=== PATIENT | female | born 1985 | race Caucasian/White ===

== ENCOUNTER 2024-12-16 10:09 | Outpatient (AMB) | payer BC, SELFPAY ==
[2024-12-16 10:24] VITALS: BP 127/75; PULSE 87; RESP 17; TEMP 36.7; BMI 33.2
--- NOTE | 2024-12-16 10:24 | AMB.GYNCLNOT ---
Vital Signs 12/16/24 10:24 Height 1.63 m Height Method Measured Weight 87.713 kg Weight Measurement Method Standing Scale BMI 33.2 BP 127/75 Blood Pressure Source Automatic Cuff Blood Pressure Location Right Upper Arm Position Sitting Respiration 17 Pulse 87 Pulse Source Monitor Temp 98.1 F Temp Source Temporal Artery Scan Allergies/Home Meds Allergies & Medications Allergies Penicillins Allergy (Intermediate, Verified 12/31/24 08:53) RASH Intake Visit Data Collection New Patient or Established: Established Patient (seen at [facility] within 3 years) Reason for Visit:: CONTROL REMOVAL CONSULT Tool Room Attendant Required: No Do You Feel Safe at Home: Yes Authorities Contacted: N/A PCP or OBGYN visit in last 3 months: Yes Date of Last PCP or OBGYN visit: 04/29/24 Hx Now: No Are you currently on any form of Control: Yes Last menstrual period: 12/14/24 Pain Present Currently: No Pain Scale Used: Travis-Martinez/Numerical Pain scale:: 0 Smoking Status Smoking Status: Never smoker 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 1. Little interest or pleasure in doing things: not at all 2. Feeling down, depressed, or hopeless: not at all Total score: 0 PHQ-9 3. Trouble falling or staying asleep, or sleeping too much: Not at all 4. Feeling tired or having little energy: Not at all 5. Poor appetite or overeating: Not at all 6. Feeling bad about yourself - or that you are a failure or have let yourself or your family down: Not at all 7. Trouble concentrating on things, such as reading the newspaper or watching television: Not at all 8. Moving or speaking so slowly that other people could have noticed? - Or the opposite - being so fidgety or restless that you have been moving around a lot more than usual: not at all 9. Thoughts that you would be better off or of hurting yourself in some way: Not at all Total score: 0 If you checked off any problems, how difficult have these problems made it for you to do your work, take care of things at home, or get along with other people?: not difficult at all Source: Developed by Drs. Serge Aparicio, Jaleesa Mederos, Elian Gorman and colleagues, with an educational elvia from [employer]. Depression screen completed yes Social History Living Situation History Marital Status: Unknown Housing: House Tobacco History Smoking Status: Never smoker Alcohol History Alcohol Intake: Never Domestic Abuse History Do You Feel Safe at Home: Yes History of Present Illness HPI Narrative Neha Greene, a 39-year-old female, presents for contraceptive counseling and Nexplanon replacement. The patient has been using Nexplanon since 2016 and is currently on her third implant, which is due for replacement within the 3-year timeframe. The patient reports satisfaction with the Nexplanon implant as her chosen method of contraception. She has consistently used this method for approximately 9 years, having it replaced at regular intervals. Her previous removals and reinsertions were performed by Dr. Beauchamp, with the most recent implant being placed at his office. The patient has not reported any issues or side effects with her current Nexplanon implant and wishes to continue with this method of contraception. Surgical History - Nexplanon insertion in 2016 - Nexplanon removal and reinsertion (second device) - Nexplanon removal and reinsertion (third device) Medications and Supplements - Nexplanon (contraceptive implant) - Third implant since 2016 - Current implant within 3-year effective period - Patient reports it has worked well for her Social History - Contraception: Current user of Nexplanon implant since 2016, with regular replacements Exam General General Appearance: alert, in no apparent distress and healthy appearing Head Head exam: atraumatic Neck Neck exam: Present normal inspection and trachea midline Chest Chest inspection: Present normal inspection and symmetric chest wall rise External exam: Present normal external exam; Absent tenderness Neuro Neurological exam: Present oriented X3 Psych Psychiatric exam: Present normal affect and normal mood Office Procedures OB Clinic LOC & Office Proc's Nursing/Assessment Patient Status: Established Patient OB Clinic Nursing Assessment: Medication Reconciliation, Update PMH in EMR and Vital Signs OB Clinic Coordination of Care: Complex Care and Chronic Disease 1-5, Education Complex Pt/Fam, Consent,records obtained, informed consent and Staff clarify orders Established Patient Charge Established Patient Point Assignment: 90 Established Patient Point Charge: EP Level 3 (80-115) Assessment & Plan Diagnosis / Problem List (1) Insertion of Nexplanon: Status: Acute (2) Encounter for removal of subdermal contraceptive implant: Status: Acute Plan Neha Greene, a 39-year-old female, presents for contraceptive counseling and Nexplanon replacement. Contraception management Assessment: Patient has been using Nexplanon for contraception since 2016, with this being her third implant. She reports satisfaction with the method and desires continuation. The current implant is within its 3-year effective period but is due for replacement. Plan: - Order new Nexplanon implant through insurance - Schedule follow-up appointment for removal of current implant and insertion of new Nexplanon once the device arrives (estimated 3-4 days) - Clinic staff to contact patient when the new implant is available to schedule the procedure
== END 2024-12-16 11:03 | disposition home or self-care (01) ==
LOC: HODSOBC 10:09
PROVIDERS: PCP Obstetrics & Gynecology; Referring Provider Obstetrics & Gynecology; Supervising Provider Obstetrics & Gynecology; Visit Provider Obstetrics & Gynecology
DX: Z30.46 Encounter for surveillance of implantable subdermal contraceptive (principal); Z88.0 Allergy status to penicillin
CPT/HCPCS: 99213; G0463

== ENCOUNTER 2024-12-31 08:25 | Outpatient (AMB) | payer BC, SELFPAY ==
[2024-12-31 08:53] VITALS: BP 117/74; PULSE 74; RESP 17; TEMP 36.7; O2SAT 99; BMI 32.8
--- NOTE | 2024-12-31 08:53 | AMB.GYNCLNOT ---
Vital Signs 12/31/24 08:53 Height 1.63 m Height Method Measured Weight 87.09 kg Weight Measurement Method Standing Scale BMI 32.8 BP 117/74 Blood Pressure Source Automatic Cuff Blood Pressure Location Right Upper Arm Position Sitting Respiration 17 Pulse 74 Pulse Source Monitor Temp 98.1 F Temp Source Temporal Artery Scan Pulse Oximetry (%) 99 Oxygen Delivery Method Room Air Allergies/Home Meds Allergies & Medications Allergies Penicillins Allergy (Intermediate, Verified 12/31/24 08:53) RASH Intake Visit Data Collection New Patient or Established: Established Patient (seen at [facility] within 3 years) Reason for Visit:: NEXPLANON REMOVAL\RE-INSERT Consent obtained for Telemed Visit: No Seen by Clinical Staff ONLY (RN/MA): No Penciller Required: No Do You Feel Safe at Home: Yes Authorities Contacted: N/A PCP or OBGYN visit in last 3 months: Yes Date of Last PCP or OBGYN visit: 12/16/24 Hx Now: No Are you currently on any form of Control: Yes Pain Present Currently: No Pain Scale Used: Travis-Martinez/Numerical Pain scale:: 0 Smoking Status Smoking Status: Never smoker 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 1. Little interest or pleasure in doing things: not at all PHQ-9 8. Moving or speaking so slowly that other people could have noticed? - Or the opposite - being so fidgety or restless that you have been moving around a lot more than usual: not at all Source: Developed by Drs. Serge Aparicio, Jaleesa Mederos, Elian Gorman and colleagues, with an educational elvia from [employer]. Social History Living Situation History Housing: House Tobacco History Smoking Status: Never smoker Alcohol History Alcohol Intake: Never Domestic Abuse History Do You Feel Safe at Home: Yes History of Present Illness HPI Narrative Patient presents today for removal and replacement of her Nexplanon implant. This will be her fourth Nexplanon implant, and she reports no complications with her current device, which is her third. She has a history of anemia and reports a tendency to bleed easily. Patient mentions being prescribed iron supplements in the past, but states that her treatment for anemia has been cyclical, with periods of being on and off iron supplementation. She also notes that she experiences significant bruising, even from minor injuries. Patient's menstrual cycles are described as variable in nature. She does not report having particularly heavy menstrual bleeding, despite her history of anemia. Patient has not undergone any specific testing to determine the cause of her anemia or tendency to bleed easily. She has a history of anemia, which is ongoing. Her surgical history includes Nexplanon implant removal and replacement (3rd replacement) and previous Nexplanon implant insertions (2 prior instances). Patient is currently using Nexplanon, which is her 3rd implant, with no complications reported. She has been taking iron intermittently for anemia. Patient has no known allergy to lidocaine. Review of systems is positive for anemia in the hematological/lymphatic system. Exam General General Appearance: alert, in no apparent distress and healthy appearing Head Head exam: atraumatic Neck Neck exam: Present normal inspection and trachea midline Chest Chest inspection: Present normal inspection and symmetric chest wall rise External exam: Present normal external exam; Absent tenderness Neuro Neurological exam: Present oriented X3 Psych Psychiatric exam: Present normal affect and normal mood Office Procedures OB Clinic LOC & Office Proc's Nursing/Assessment Patient Status: Established Patient OB Clinic Nursing Assessment: Medication Reconciliation, Update PMH in EMR and Vital Signs OB Clinic Coordination of Care: Complex Care and Chronic Disease 1-5, Education Complex Pt/Fam, Consent,records obtained, informed consent, 4+ Authorizations needed and Staff clarify orders Established Patient Charge Established Patient Point Assignment: 115 Established Patient Point Charge: EP Level 3 (80-115) In Clinic Procedures Insertion of Control other NOT IUD's: Yes Removal of Control Implant other NOT IUD: Yes Results Urine HCG Urine HCG Negative Last Edit by Tosin Desir MA on 12/31/24 09:24 Assessment & Plan Diagnosis / Problem List (1) Encounter for removal of subdermal contraceptive implant: Status: Acute (2) Insertion of Nexplanon: Status: Acute (3) Chronic anemia: Status: Acute Plan Contraception management: - Removed existing Nexplanon implant from left arm. - Inserted new Nexplanon implant in the same location. - Applied pressure bandage to insertion site. - Patient instructed to remove pressure bandage after one hour. - Informed patient that new implant is effective for 3 years. - Advised patient to return if any issues arise. Anemia with easy bruising/bleeding: - Recommended patient consult with primary care physician for further evaluation. - Suggested testing for platelet disorders or other causes of easy bleeding. Additional Assessment Procedure Details: After obtaining informed consent, the patient was placed in a comfortable supine position. The previous implant site on the left upper arm was identified by palpation. The area was prepped with antiseptic solution and anesthetized with 1% lidocaine. A small incision was made over the distal end of the implant, which was then grasped and removed intact without difficulty. A new Nexplanon shanon (Lot #: [id number]) was inserted in the contralateral (right) upper inner arm using aseptic technique and social media strategist protocol. Implant placement was confirmed by palpation. Hemostasis was achieved. Sterile bandage applied. Estimated Blood Loss: Minimal Complications: None Disposition: Patient tolerated procedure well and was discharged in stable condition with post-procedure care instructions.
== END 2024-12-31 09:17 | disposition home or self-care (01) ==
LOC: HODSOBC 08:25
PROVIDERS: PCP Obstetrics & Gynecology; Referring Provider Obstetrics & Gynecology; Supervising Provider Obstetrics & Gynecology; Visit Provider Obstetrics & Gynecology
DX: Z30.46 Encounter for surveillance of implantable subdermal contraceptive (principal); D64.9 Anemia, unspecified; Z88.0 Allergy status to penicillin
CPT/HCPCS: 11983; 96372; 99213; J3490; J7301; G0463

== ENCOUNTER → 2025-01-27 | Outpatient (CLI) | payer BC, SELFPAY ==
[2025-01-27 09:40] LABS: Collection Type, Urine Clean Catch
[2025-01-27 10:08] LABS: Glucose Estimated Average 114 mg/dL (80-131); Hemoglobin A1C 5.6 % Hgb (4.8-6.0)
[2025-01-27 10:10] LABS: Basophils # (Auto) 0.1 Thou/mm3 (0.0-0.2); Basophils % (Auto) 2 % (0-2.5); Eosinophils # (Auto) 0.2 Thou/mm3 (0.0-0.5); Eosinophils % (Auto) 3 % (0-10); Hematocrit 26.3 % (36.0-46.0); Immature Granulocytes Auto 0.00 Thou/mm3 (0.00-0.00); Lymphocytes # (Auto) 1.7 Thou/mm3 (1.0-4.8); Lymphocytes % (Auto) 35 % (10-50); Mean Corpuscular HGB Conc 30.0 g/dl (31.0-37.0); Mean Corpuscular Hemoglobin 20.6 pg (25.0-35.0); Mean Corpuscular Volume 69 fL (80-100); Monocytes # (Auto) 0.4 Thou/mm3 (0.0-0.8); Monocytes % (Auto) 8 % (0-12); Neutrophils # (Auto) 2.5 Thou/mm3 (1.8-7.7); Neutrophils % (Auto) 53 % (37-80); Nucleated Red Blood Cell # 0.00 Thou/mm3 (0.00-0.00); Nucleated Red Blood Cell % 0 /100 WBC (0); Platelet Count 435 Thou/mm3 (140-440); RDW Standard Deviation 50.1 fL (36.4-46.3); Red Blood Count 3.84 Miln/mm3 (4.00-5.20); White Blood Count 4.8 Thou/mm3 (3.6-11.0)
[2025-01-27 10:15] LABS: Alanine Aminotransferase 12 U/L (10-49); Albumin, Serum 4.2 gm/dL (3.5-5.0); Albumin/Globulin Ratio 2.1 (1.2-2.2); Alkaline Phosphatase 42 U/L (46-116); Anion Gap 9 (7-16); Aspartate Amino Transferase 15 U/L (0-34); BUN/Creatinine Ratio 10 Ratio (12-20); Bilirubin,Total 0.3 mg/dL (0.3-1.2); Blood Urea Nitrogen 8 mg/dL (9-23); Calcium 9.1 mg/dL (8.3-10.6); Calcium (Corrected) 9.1 mg/dL (8.5-10.1); Carbon Dioxide 26.6 mMol/L (20.0-31.0); Cardiac Risk Estimate 3.6 RATIO (3.7-5.6); Chloride 105 mMol/L (98-107); Cholesterol 131 mg/dL (132-200); Creatinine (Component) 0.8 mg/dL (0.6-1.3); Globulin 2.0 gm/dL (2.3-3.5); Glucose 91 mg/dL (74-106); HDL Cholesterol 36 mg/dL (40-60); LDL Cholesterol,Calculated 83 mg/dL (0-130); Osmolality,Calculated 279 (275-295); Potassium 3.6 mMol/L (3.4-5.1); Sodium 141 mMol/L (136-145); Thyroid Stimulating Hormone 1.33 uIU/mL (0.55-4.78); Total Protein 6.2 gm/dL (5.7-8.2); Triglycerides 60 mg/dL (30-150); eGFR > 60 See Note
[2025-01-27 10:16] LABS: Hemoglobin 7.9 g/dL (12.0-16.0); Vitamin B12 723 pg/mL (211-911); Vitamin D 25 Hydroxy Total 31.7 ng/mL (7.3-40.2)
[2025-01-27 10:17] LABS: Iron 12 mcg/dL (50-170)
[2025-01-27 10:23] LABS: Bacteria,Urine Rare; Bilirubin,Urine Negative (Negative); Blood,Urine Negative (Negative); Clarity,Urine Clear (Clear/Hazy); Color,Urine Yellow (Lt Yel-Yel); Glucose, Urine Negative (Negative); Ketones,Urine Negative (Negative); Leukocyte Esterase,Urine Positive (Negative); Nitrite,Urine Positive (Negative); PH,Urine 6.5 (5.0-7.0); Protein,Urine Negative (Neg - Trace); RBC,Urine 1 /hpf (0-3); Specific Gravity,Urine 1.016 (1.001-1.035); Squamous Epithelial Cell,Urine 6 /hpf (0-5); Urobilinogen,Urine Negative mg/dL (0.0-1.0); WBC,Urine 6 /hpf (0-5)
[2025-01-27 11:11] LABS: Culture Indicated,Urine Yes
[2025-01-27 17:32] LABS: Path Review Blood Smear Sent to Pathologist
== END | disposition home or self-care (01) ==
LOC: COPL 09:10
PROVIDERS: PCP Family Medicine; Referring Provider Nurse Practitioner Family; Visit Provider Nurse Practitioner Family
DX: Z00.00 Encounter for general adult medical examination without abnormal findings (principal); Z98.84 Bariatric surgery status
CPT/HCPCS: 36415; 80053; 80061; 81001; 82306; 82607; 83036; 83540; 84443; 85025; 87077; 87086; 87186

== ENCOUNTER → 2025-01-29 | Outpatient (CLI) | payer BC, SELFPAY ==
[2025-02-02 14:42] LABS: Fecal Globin Result NOT DETECTED (NOT DETECTED)
== END | disposition home or self-care (01) ==
LOC: SLDO 10:39
PROVIDERS: Referring Provider Nurse Practitioner Family; Visit Provider Nurse Practitioner Family
DX: R19.5 Other fecal abnormalities (principal)
CPT/HCPCS: 82274; G0328

== ENCOUNTER → 2025-02-12 | Outpatient (CLI) | payer BC, SELFPAY ==
[2025-02-12 13:59] LABS: Collection Type, Urine Clean Catch
[2025-02-12 14:18] LABS: Bacteria,Urine Rare; Bilirubin,Urine Negative (Negative); Blood,Urine Negative (Negative); Clarity,Urine Clear (Clear/Hazy); Color,Urine Yellow (Lt Yel-Yel); Culture Indicated,Urine Not Indicated; Glucose, Urine Negative (Negative); Ketones,Urine Trace (Negative); Leukocyte Esterase,Urine Negative (Negative); Nitrite,Urine Negative (Negative); PH,Urine 7.0 (5.0-7.0); Protein,Urine Trace (Neg - Trace); RBC,Urine 1 /hpf (0-3); Specific Gravity,Urine 1.022 (1.001-1.035); Squamous Epithelial Cell,Urine 4 /hpf (0-5); Urobilinogen,Urine 2.0 mg/dL (0.0-1.0); WBC,Urine 1 /hpf (0-5)
[2025-02-12 14:20] LABS: Basophils # (Auto) 0.1 Thou/mm3 (0.0-0.2); Basophils % (Auto) 1 % (0-2.5); Eosinophils # (Auto) 0.1 Thou/mm3 (0.0-0.5); Eosinophils % (Auto) 3 % (0-10); Hematocrit 29.2 % (36.0-46.0); Hemoglobin 9.0 g/dL (12.0-16.0); Immature Granulocytes Auto 0.01 Thou/mm3 (0.00-0.00); Lymphocytes # (Auto) 1.9 Thou/mm3 (1.0-4.8); Lymphocytes % (Auto) 33 % (10-50); Mean Corpuscular HGB Conc 30.8 g/dl (31.0-37.0); Mean Corpuscular Hemoglobin 21.8 pg (25.0-35.0); Mean Corpuscular Volume 71 fL (80-100); Monocytes # (Auto) 0.5 Thou/mm3 (0.0-0.8); Monocytes % (Auto) 8 % (0-12); Neutrophils # (Auto) 3.1 Thou/mm3 (1.8-7.7); Neutrophils % (Auto) 55 % (37-80); Nucleated Red Blood Cell # 0.00 Thou/mm3 (0.00-0.00); Nucleated Red Blood Cell % 0 /100 WBC (0); Platelet Count 450 Thou/mm3 (140-440); RDW Standard Deviation 56.5 fL (36.4-46.3); Red Blood Count 4.13 Miln/mm3 (4.00-5.20); White Blood Count 5.7 Thou/mm3 (3.6-11.0)
[2025-02-12 14:34] LABS: Iron 17 mcg/dL (50-170)
== END | disposition home or self-care (01) ==
LOC: COPL 12:45
PROVIDERS: PCP Nurse Practitioner Family; Referring Provider Nurse Practitioner Family; Visit Provider Nurse Practitioner Family
DX: D50.9 Iron deficiency anemia, unspecified (principal); N30.00 Acute cystitis without hematuria
CPT/HCPCS: 36415; 81001; 83540; 85025

== ENCOUNTER 2025-03-03 19:19 | Emergency (ER) | payer BC, SELFPAY ==
[2025-03-03 19:21] VITALS: BMI 27.1
[2025-03-03 20:14] VITALS: BP 119/76; PULSE 81; RESP 16; TEMP 36.9; O2SAT 100
[2025-03-03 20:47] LABS: Collection Type, Urine Clean Catch
[2025-03-03 20:53] LABS: Basophils # (Auto) 0.1 Thou/mm3 (0.0-0.2); Basophils % (Auto) 1 % (0-2.5); Bilirubin,Urine Negative (Negative); Blood,Urine Trace (Negative); Clarity,Urine Clear (Clear/Hazy); Color,Urine Lt-Yellow (Lt Yel-Yel); Culture Indicated,Urine Not Indicated; Eosinophils # (Auto) 0.1 Thou/mm3 (0.0-0.5); Eosinophils % (Auto) 1 % (0-10); Glucose, Urine Negative (Negative); Hematocrit 32.6 % (36.0-46.0); Hemoglobin 10.4 g/dL (12.0-16.0); Immature Granulocytes Auto 0.02 Thou/mm3 (0.00-0.00); Ketones,Urine 1+ (Negative); Leukocyte Esterase,Urine Negative (Negative); Lymphocytes # (Auto) 1.7 Thou/mm3 (1.0-4.8); Lymphocytes % (Auto) 26 % (10-50); Mean Corpuscular HGB Conc 31.9 g/dl (31.0-37.0); Mean Corpuscular Hemoglobin 23.3 pg (25.0-35.0); Mean Corpuscular Volume 73 fL (80-100); Monocytes # (Auto) 0.4 Thou/mm3 (0.0-0.8); Monocytes % (Auto) 6 % (0-12); Neutrophils # (Auto) 4.2 Thou/mm3 (1.8-7.7); Neutrophils % (Auto) 66 % (37-80); Nitrite,Urine Negative (Negative); Nucleated Red Blood Cell # 0.00 Thou/mm3 (0.00-0.00); Nucleated Red Blood Cell % 0 /100 WBC (0); PH,Urine 6.0 (5.0-7.0); Platelet Count 412 Thou/mm3 (140-440); Protein,Urine Negative (Neg - Trace); RBC,Urine < 1 /hpf (0-3); RDW Standard Deviation 63.7 fL (36.4-46.3); Red Blood Count 4.46 Miln/mm3 (4.00-5.20); Specific Gravity,Urine 1.009 (1.001-1.035); Squamous Epithelial Cell,Urine 2 /hpf (0-5); Urobilinogen,Urine Negative mg/dL (0.0-1.0); WBC,Urine < 1 /hpf (0-5); White Blood Count 6.4 Thou/mm3 (3.6-11.0)
[2025-03-03 20:59] LABS: HCG Qualitative,Urine Negative
[2025-03-03 21:00] LABS: Amphetamine/Methamp Scrn,U Negative (Negative); Barbiturate Screen,Urine Negative (Negative); Benzodiazepines Screen,Urine Negative (Negative); Benzoylecgonine Screen, Ur Negative (Negative); Fentanyl Screen,Urine Negative (Negative); Opiate Screen,Urine Negative (Negative); THC Screen,Urine Negative (Negative)
[2025-03-03 21:17] LABS: Alanine Aminotransferase 10 U/L (10-49); Albumin, Serum 4.7 gm/dL (3.5-5.0); Albumin/Globulin Ratio 2.0 (1.2-2.2); Alkaline Phosphatase 46 U/L (46-116); Anion Gap 12 (7-16); Aspartate Amino Transferase 13 U/L (0-34); BUN/Creatinine Ratio 7 Ratio (12-20); Bilirubin,Total 0.5 mg/dL (0.3-1.2); Blood Urea Nitrogen < 5 mg/dL (9-23); Calcium 9.9 mg/dL (8.3-10.6); Calcium (Corrected) 9.9 mg/dL (8.5-10.1); Carbon Dioxide 25.0 mMol/L (20.0-31.0); Chloride 103 mMol/L (98-107); Creatinine (Component) 0.7 mg/dL (0.6-1.3); Estimated Creatinine Clearance 105.8 mL/min (>60); Globulin 2.3 gm/dL (2.3-3.5); Glucose 88 mg/dL (74-106); Iron 96 mcg/dL (50-170); Osmolality,Calculated 275 (275-295); Percent Iron Saturation 34 % (20-55); Potassium 3.6 mMol/L (3.4-5.1); Sodium 140 mMol/L (136-145); Total Iron Binding Capacity 280 mcg/dL (250-425); Total Protein 7.0 gm/dL (5.7-8.2); Unsaturated Iron Binding 184 (225-295); eGFR > 60 See Note
[2025-03-03] MEDS: ONDANSETRON ODT 4 MG TABRAP PO (22:30)
--- NOTE | 2025-03-04 01:33 | EDNOTE_ITS ---
ED Recheck Abnl Lab Rx-RME/HPI General Chief Complaint: General Adult/Misc Complain Stated Complaint: LETHARGIC, POSSIBLE LOW IRON,VOMITING Time Seen by Provider: 03/03/25 20:21 Arrival date/time: 03/03/25 19:19 39F with no significant PMH presents to ED with generalized fatigue and some N/V. Patient recently started taking iron because her iron levels and HgB were low. Limitations: no limitations Related Data Previous Rx's ?Medication ?Instructions ?Recorded ondansetron 4 mg disintegrating 4 mg PO Q8H PRN nausea and 03/03/25 tablet vomiting #14 tabs Allergies Allergy/AdvReac Type Severity Reaction Status Date / Time Penicillins Allergy Intermediate RASH Verified 03/03/25 19:20 Review of Systems Review of Systems Systems Reviewed: All systems reviewed, normal except as documented Constitutional Constitutional: Reports as per HPI and Reports fatigue Gastrointestinal Gastrointestinal: Reports as per HPI, Reports nausea and Reports vomiting Endocrine Endocrine: Reports fatigue Past Medical History Social History SMOKING STATUS: Current every day smoker ED Exam General Limitations: Present no limitations General appearance: Present alert and in no apparent distress Head Head exam: Present atraumatic Neck Neck exam: Present normal inspection, full ROM and trachea midline Chest Chest inspection: Present normal inspection and symmetric chest wall rise Psychiatric Psychiatric exam: Present normal affect and normal mood Skin Skin exam: Present warm, dry, intact and normal color Course Quality Measures none Orders Category Date Time Status Blood glucose [Bedside Blood Glucose] NOW Care 03/03/25 19:25 Completed CBC Stat Lab 03/03/25 20:40 Completed CMP [Comprehensive Metabolic Panel] Stat Lab 03/03/25 20:40 Completed Drug Screen,Urine Stat Lab 03/03/25 20:40 Completed HCG Qualitative,Urine Stat Lab 03/03/25 20:40 Completed Iron Panel Stat Lab 03/03/25 20:40 Completed Type and Screen Stat Lab 03/03/25 20:40 Completed Urinalysis, C/S if Indicated Stat Lab 03/03/25 20:40 Completed Ondansetron Odt [Zofran Odt] Med 03/03/25 22:24 Discontinued 4 mg PO X1 ONE Vital Signs Vital signs: Vital Signs Temperature 98.5 F 03/03/25 20:14 Pulse Rate 81 03/03/25 20:14 Respiratory Rate 16 03/03/25 20:14 Blood Pressure 119/76 03/03/25 20:14 Pulse Oximetry (%) 100 03/03/25 20:14 Oxygen Delivery Method Room Air 03/03/25 20:14 O2 at 100% on RA and WNLs Recheck / Abnormal Lab / Rx MDM Narrative MDM Narrative:: 39F with no significant PMH presents to ED with generalized fatigue and some N/V. Patient recently started taking iron because her iron levels and HgB were low. Physical exam reveals well-appearing female. Speech normal. Gait normal. Normal WOB. Patient is afebrile, calm, and alert. No leukocytosis with minimal anemia. CMP unremarkable. UA clean with mild dehydration. HCG/tox screen neg. Meds and milieu counselor given. Patient data External records reviewed:: [facility] previous records Clinical information provided by:: patient Social determinants that could affect healthcare access:: none Patient has the following chronic illnesses:: none How is presenting disease/condition affected by chronic disease/condition?: no chronic disease Evaluation data The following diagnostics were reviewed and interpreted by me:: lab results Lab and/or radiology exams considered but not ordered:: ordered Interpretation Summary: above Medications / Prescriptions Medications or Prescriptions considered but not ordered:: ordered Medication administrations:: Medication Administration History Discontinued Medications Ondansetron HCl (Ondansetron Odt 4 Mg Tabrap) 4 mg PO X1 ONE; Protocol Stop: 03/03/25 22:25 Last Admin: 03/03/25 22:30 Dose: 4 mg Documented By: OA above Consultations Consultation(s) initiated? (list below): No Diagnosis Recheck Differential Diagnosis: encounter for medication refill, encounter for wound recheck, encounter for recheck of burn, encounter for removal of sutures, warfarin-induced coagulopathy and other (fatigue and N/V) Most likely diagnosis given after review of the tests above:: fatigue and N/V Admission Indicated Admission indicated?: not indicated Admission Request Was there a request for admission?: No Disposition Plan Disposition Plan: Discharge Discharge Attestation Discharge Attestation: The patient and all family members were given an opportunity to ask questions and understood the discharge instructions. Discharge instructions specifically effects, indications for sooner follow up or return to the emergency department, and the expected course of current diagnosis. Patient condition: Stable Discharge Plan Plan Patient Disposition: HOME (Self Care) Discharge Disposition comment: Stable Prescriptions/Referrals Prescriptions/Med Rec: New ondansetron 4 mg tablet,disintegrating 4 mg PO Q8H PRN (Reason: nausea and vomiting) Qty: 14 0RF Referrals: Ivy Whitley, [facility] [Primary Care Provider] - In 1 week Problem List Clinical Impression: Nausea & vomiting, Fatigue Patient/Caregiver Discharge Instructions Education Materials: ED Vomiting (Adult), ED Weakness (Uncertain Cause) Additional Instructions: Please follow-up with PCP within 24-48 hours and return immediately if symptoms worsen. Keep hydrated. Advance diet as tolerated. Print Language: Georgian Stand Alone Forms: Patient Portal Info Letter PA/FITNESS SPECIALIST Supervising Physician PA/FITNESS SPECIALIST Supervising Physician: Dr. Scott
== END 2025-03-03 23:17 | disposition home or self-care (01) ==
PROVIDERS: Physician Assistant; Emergency Provider Emergency Medicine; PCP Nurse Practitioner Family
DX: R11.2 Nausea with vomiting, unspecified (principal); R53.83 Other fatigue
CPT/HCPCS: 36415; 80053; 80307; 81001; 81025; 83540; 83550; 85025; 86850; 86900; 86901; 99284; Q0162

== ENCOUNTER → 2025-03-16 | Outpatient (CLI) | payer BC, SELFPAY ==
--- NOTE | 2025-03-16 09:10 | XR_ITS ---
Examination: Lumbar spine 3 views TECHNIQUE: AP lateral coned lateral lower lumbar spine 3 views Date and time: March 16, 2025 0937 hours INDICATIONS: Low back pain radiating to the hips and legs one month. FINDINGS: Lumbar levoscoliosis 8 degrees No lumbar fracture Mild disc narrowing L4-L5, L5-S1 Mild lumbar spondylosis IMPRESSION: Mild disc narrowing L4-L5, L5-S1
== END | disposition home or self-care (01) ==
PROVIDERS: PCP Nurse Practitioner Family; Referring Provider Nurse Practitioner Family; Visit Provider Nurse Practitioner Family
DX: M48.07 Spinal stenosis, lumbosacral region (principal); M48.061 Spinal stenosis, lumbar region without neurogenic claudication
CPT/HCPCS: 72100

== ENCOUNTER → 2025-05-08 | Outpatient (CLI) | payer BC, SELFPAY ==
[2025-05-08 09:37] LABS: Basophils # (Auto) 0.1 Thou/mm3 (0.0-0.2); Basophils % (Auto) 2 % (0-2.5); Eosinophils # (Auto) 0.2 Thou/mm3 (0.0-0.5); Eosinophils % (Auto) 3 % (0-10); Hematocrit 29.9 % (36.0-46.0); Hemoglobin 9.5 g/dL (12.0-16.0); Immature Granulocytes Auto 0.02 Thou/mm3 (0.00-0.00); Lymphocytes # (Auto) 1.4 Thou/mm3 (1.0-4.8); Lymphocytes % (Auto) 26 % (10-50); Mean Corpuscular HGB Conc 31.8 g/dl (31.0-37.0); Mean Corpuscular Hemoglobin 26.6 pg (25.0-35.0); Mean Corpuscular Volume 84 fL (80-100); Monocytes # (Auto) 0.3 Thou/mm3 (0.0-0.8); Monocytes % (Auto) 6 % (0-12); Neutrophils # (Auto) 3.3 Thou/mm3 (1.8-7.7); Neutrophils % (Auto) 63 % (37-80); Nucleated Red Blood Cell # 0.00 Thou/mm3 (0.00-0.00); Nucleated Red Blood Cell % 0 /100 WBC (0); Platelet Count 342 Thou/mm3 (140-440); RDW Standard Deviation 48.1 fL (36.4-46.3); Red Blood Count 3.57 Miln/mm3 (4.00-5.20); White Blood Count 5.3 Thou/mm3 (3.6-11.0)
[2025-05-08 10:01] LABS: Iron 107 mcg/dL (50-170)
== END | disposition home or self-care (01) ==
PROVIDERS: PCP Family Medicine; Referring Provider Nurse Practitioner Family; Visit Provider Nurse Practitioner Family
DX: E66.9 Obesity, unspecified (principal)
CPT/HCPCS: 36415; 83540; 85025